=== PATIENT | female | born 1980 | race American Indian/Alaskan Native ===

== ENCOUNTER 2018-01-19 21:26 | Emergency (ER) | payer MEDICAID ==
[2018-01-19 21:41] VITALS: TEMP 98
--- NOTE | 2018-01-19 22:42 | ED PDOC ---
HPI: Abdomen Time Seen by Provider: 01/19/18 21:44 Chief Complaint (Nursing): Female Genitourinary Chief Complaint (Provider): Abdomain Pain with vaginal bleeding History Per: Patient History/Exam Limitations: no limitations Additional Complaint(s): 37 year old female presented to the ED complaining of abdominal pain with vaginal spotting. Patient is and is currently 11 weeks and is receiving care, has had prior US at 9 weeks, confirming an IUP. Patient reports she has had 2 high risk pregnancies. The first led to a delivery at 26 weeks. The second , cerclage was required and baby was delivered at 38 weeks. Denies fever, urinary symptoms and vomiting , has no other complaints. PCP: Long Navarrete Past Medical History Reviewed: Historical Data, Nursing Documentation, Vital Signs Vital Signs: Last Vital Signs Temp 98.0 F 01/20/18 01:35 Pulse 76 01/20/18 01:35 Resp 14 01/20/18 01:35 BP 112/67 01/20/18 01:35 Pulse Ox 100 01/20/18 02:54 - Medical History PMH: No Chronic Diseases - Family History Family History: States: Unknown Family Hx - Home Medications Home Medications: Ambulatory Orders Medication Instructions Recorded Nitrofurantoin Macrocrystals 100 mg PO BID #14 cap 01/20/18 [Macrobid] - Allergies Allergies/Adverse Reactions: Allergies Allergy/AdvReac Type Severity Reaction Status Date / Time shellfish derived Allergy SWELLING Verified 01/19/18 21:36 Review of Systems ROS Statement: Except As Marked, All Systems Reviewed And Found Negative Constitutional: Negative for: Fever Gastrointestinal: Positive for: Abdominal Pain. Negative for: Vomiting Genitourinary Female: Positive for: Vaginal Bleeding Physical Exam - Reviewed Nursing Documentation Reviewed: Yes Vital Signs Reviewed: Yes - Physical Exam Comments: GENERAL APPEARANCE: Patient is awake, alert, oriented x 3, no distress. SKIN: Warm, dry; (-) cyanosis. EYES: (-) conjunctival pallor, (-) scleral icterus. ENMT: Mucous membranes moist. NECK: (-) tenderness, (-) stiffness, (-) lymphadenopathy. CHEST AND RESPIRATORY: (-) rales, (-) rhonchi, (-) wheezes; breath sounds equal bilaterally. HEART AND CARDIOVASCULAR: (-) irregularity; (-) murmur, (-) gallop. ABDOMEN AND GI: (-) distention. Bowel sounds active; (-) tenderness, (-) guarding, (-) rebound, (-) palpable masses, (-) CVA tenderness. EXTREMITIES: (-) deformity, (-) edema, (+) distal pulses. NEURO AND PSYCH: Mental status as above; (-) focal findings. - Laboratory Results Result Diagrams: 01/19/18 22:35 01/19/18 22:35 - ECG O2 Sat by Pulse Oximetry: 100 (RA) Pulse Ox Interpretation: Normal Medical Decision Making Medical Decision Making: Initial Impression: threatened Initial Plan: - labs - ua - US TV Time: 0100 TRANSVAGINAL US RESULTS FINDINGS: Oropharynx: Normal. No significant tonsillar enlargement. Hypopharynx: Normal. Larynx: Normal. Normal epiglottis. Trachea: Normal. Retropharyngeal space: Normal. Submandibular/parotid glands: Normal. Glands are normal in size. Thyroid: Normal. No enlarged or calcified nodules. Bones/joints: No acute fracture. Soft tissues: Normal. Vasculature: No acute findings. Lymph nodes: Normal. No lymphadenopathy. Lung apices: Unremarkable as visualized. IMPRESSION: Normal neck CT. Dictated and Authenticated by: Gaston Addison MD 01/20/2018 1:00 AM Eastern Time ([place] & [place]) Labs reviewed : patient is B+, beta quant [id number], K 3.1, UA +trace leuks, urine cx sent. Patient medicated with KCL PO, macrobid PO. On re-evaluation, patient reports improvement of symptoms, denies any pain or increase in vaginal spotting or bleeding at this time. On exam, patient remains AAOx3, in no acute distress. Diagnostic results d/w the patient in great detail. Diagnosis of UTI, first trimester bleeding d/w the patient. Based on history, exam and diagnostic results, plan will be for outpatient follow up. Patient instructed to follow-up with OB in 1-2 days without fail. Advised to take medication as prescribed. Return to the emergency room at any time for any new or worsening symptoms. Patient states she fully agrees with and understands discharge instructions. States that she agrees with the plan and disposition. Verbalized and repeated discharge instructions and plan. I have given the patient opportunity to ask any additional questions. Scribe Attestation: Documented by Andi Aguilera, acting as a scribe for Nohemi Rai PA-C. Provider Scribe Attestation: All medical record entries made by the Scribe were at my direction and personally dictated by me. I have reviewed the chart and agree that the record accurately reflects my personal performance of the history, physical exam, medical decision making, and the department course for this patient. I have also personally directed, reviewed, and agree with the discharge instructions and disposition. Disposition - Clinical Impression Clinical Impression: Urinary tract infection, First trimester bleeding - Patient ED Disposition Is Patient to be Admitted: No Counseled Patient/Family Regarding: Studies Performed, Diagnosis, Need For Followup, Rx Given - Disposition Disposition: Routine/Home Disposition Time: 01:00 Condition: STABLE Additional Instructions: Thank you for letting us take care of you today. You were treated for UTI, first trimester bleeding. The emergency medical care you received today was directed at your acute symptoms. If you were prescribed any medication, please fill it and take as directed. It may take several days for your symptoms to resolve. Return to the Emergency Department if your symptoms worsen, do not improve, or if you have any other problems. Please contact your OB doctor in 2 days for re-evaluation and follow up. Bring any paperwork you were given at discharge with you along with any medications you are taking to your follow up visit. Our treatment cannot replace ongoing medical care by a primary care provider (PCP) outside of the emergency department. Thank you for allowing the [facility] team to be part of your care today. If you had a urine culture test done : We will call you regarding any positive results Prescriptions: Nitrofurantoin Macrocrystals [Macrobid] 100 mg PO BID #14 cap Instructions: Urinary Tract Infections in Adults, Bleeding With Forms: [employer] (German)
[2018-01-19 22:50] LABS: BASO # 0.1 K/uL (0.0-0.2); BASO % 0.7 % (0.0-2.0); EOS # 0.3 K/uL (0.0-0.7); EOS % 2.8 % (0.0-4.0); HEMOGLOBIN 13.1 g/dL (12.0-16.0); LYMPH % 29.2 % (20.0-40.0); MEAN CELL VOLUME 96.1 fl (81.0-99.0); MEAN CORPUSCULAR HEMOGLOBIN 33.8 pg (27.0-31.0); MEAN CORPUSCULAR HGB CONC 35.2 g/dL (33.0-37.0); MONO # 0.8 K/uL (0.0-0.8); MONO % 7.9 % (0.0-10.0); NEUT # 6.2 K/uL (1.8-7.0); NEUT % 59.4 % (50.0-75.0); NRBC % 0.2 % (0.0-0.0); RBC 3.87 Mil/uL (3.80-5.20); RED CELL DISTRIBUTION WIDTH 12.9 % (11.5-14.5); WHITE BLOOD COUNT 10.4 K/uL (4.8-10.8)
[2018-01-19 22:58] LABS: SQUAMOUS EPITHIAL 4 /hpf (0-5); URINE BACTERIA RARE (<OCC); URINE BILIRUBIN NEGATIVE (NEGATIVE); URINE BLOOD MODERATE (NEGATIVE); URINE CLARITY CLOUDY (Clear); URINE COLOR YELLOW (YELLOW); URINE GLUCOSE (UA) NEG (Normal); URINE LEUKOCYTE ESTERASE TRACE Leu/uL (Negative); URINE PROTEIN 30 mg/dL (NEGATIVE); URINE UROBILINOGEN 0.2-1.0 mg/dL (0.2-1.0)
[2018-01-19 23:01] LABS: BLOOD UREA NITROGEN 7 mg/dl (7-17); CALCIUM 9.7 mg/dL (8.4-10.2); GFR AFRICAN-AMERICAN > 60; GFR NON-AFRICAN AMERICAN > 60
[2018-01-20] MEDS ORDERED: Potassium Chloride 20 mEq/15 ml LIQ UD PO ONE (01:07)
[2018-01-20] MEDS ORDERED: Potassium Chloride 20 mEq ER Tab PO ONE (01:14)
[2018-01-20 01:36] VITALS: BP 112/67; PULSE 76; RESP 14
[2018-01-20 02:52] VITALS: O2SAT 100
--- NOTE | 2018-01-20 15:40 | US ---
HISTORY: 11 wks preg, vag bleeding COMPARISON: None available. TECHNIQUE: Transvaginal pelvic ultrasound was performed with longitudinal and transverse images submitted for interpretation. FINDINGS: UTERUS: Measures 14.9 x 11.6 x 9.3 cm. The uterus is anteverted, enlarged in size due to intrauterine gestation. No fibroid or other mass lesion seen. Intrauterine gestation is identified within the endometrial cavity with mean sac diameter of 5.13 cm corresponding to 11 weeks 0 days gestational age. Mean crown-rump length measurement measures 4.8 cm correspond to 11 weeks 5 days. The decidual reaction appears unremarkable with no so she did hemorrhage. Based on CRL mean, estimated delayed of delivery 08/08/2018. cardiac activity 164.11 beats per minute. ENDOMETRIUM: Intrauterine gestation. CERVIX: Cervix measures 5.3 cm with a closed internal os at a solitary anterior inferior nabothian cysts. RIGHT OVARY: Measures 4.8 x 3.5 x 2.2 cm. No solid mass. Normal flow. LEFT OVARY: Measures 3.8 x 4.6 x 1.8 cm. No solid mass. Normal flow. FREE FLUID: No significant free fluid noted. OTHER FINDINGS: None. IMPRESSION: A single viable intrauterine gestation is identified within the endometrial cavity with average ultrasonic age of 11 weeks 5 days and cardiac activity of 164.11 beats per minute. No related decidual hemorrhage appreciated.
== END 2018-01-20 01:36 | disposition home or self-care (01) ==
LOC: H.ER 21:26
DX: O23.41 Unspecified infection of urinary tract in pregnancy, first trimester (principal); Z3A.11 11 weeks gestation of pregnancy; O20.9 Hemorrhage in early pregnancy, unspecified

== ENCOUNTER 2018-07-12 08:55 | Emergency (ER) | payer BC, MEDICAID ==
[2018-07-12 19:44] VITALS: BP 113/56; PULSE 88; TEMP 98.2; O2SAT 100
--- NOTE | 2018-08-06 18:06 | OP ---
PROCEDURE DATE: 07/12/2018 She is at 36 weeks' with cerclage. DESCRIPTION OF PROCEDURE: With the patient in the dorsal lithotomy position, no anesthesia was given, the patient was prepped and draped in the usual sterile manner. The speculum placed in the vagina. Her cervix was cleaned with Betadine. After which, the knots from the cerclage were identified and were grasped. A long scissors was used to clip the knots of the cerclage and removed from. There were two knots placed. The procedure was done without any complication and there was no bleeding. The patient tolerated the procedure well and was in satisfactory condition after the procedure was done. Long Machado MD procedure removal of cerclage [place]
== END 2018-07-12 14:20 | disposition home or self-care (01) ==
LOC: H.EROB2 08:55 → MERGE 08:55 → H.EROB2 14:20
DX: O26.873 Cervical shortening, third trimester (principal); Z3A.36 36 weeks gestation of pregnancy

== ENCOUNTER 2018-07-24 14:27 | Inpatient (IN) | payer BC, MEDICAID ==
[2018-07-24 15:15] VITALS: BMI 34.2
[2018-07-24] MEDS ORDERED: Oxytocin 30 UNIT 30 UNITS/500 ML BAG IV ONE (15:21)
[2018-07-24] MEDS ORDERED: OXYTOCIN/0.9 % NS 20 UNIT/1,000 ML BAG IV SCH (15:30)
[2018-07-24] MEDS: Lactated Ringer's 1,000 ML IV SCH ×2 (15:30→16:00)
[2018-07-24 15:41] LABS: BASO # 0.1 K/uL (0.0-0.2); BASO % 0.7 % (0.0-2.0); EOS # 0.1 K/uL (0.0-0.7); EOS % 1.4 % (0.0-4.0); HEMOGLOBIN 11.5 g/dL (12.0-16.0); LYMPH # 3.1 K/uL (1.0-4.3); LYMPH % 31.2 % (20.0-40.0); MEAN CELL VOLUME 96.7 fl (81.0-99.0); MEAN CORPUSCULAR HEMOGLOBIN 31.6 pg (27.0-31.0); MEAN CORPUSCULAR HGB CONC 32.6 g/dL (33.0-37.0); MEAN PLATELET VOLUME 8.2 fl (7.2-11.7); MONO # 1.2 K/uL (0.0-0.8); MONO % 11.6 % (0.0-10.0); NEUT # 5.5 K/uL (1.8-7.0); NEUT % 55.1 % (50.0-75.0); NRBC % 0.2 % (0.0-0.0); RBC 3.65 Mil/uL (3.80-5.20); RED CELL DISTRIBUTION WIDTH 13.4 % (11.5-14.5); WHITE BLOOD COUNT 9.9 K/uL (4.8-10.8)
--- NOTE | 2018-07-24 15:45 | OBHP ---
Datetime: 07/24/2018 15:18 IP Adm Impression: Term, intrauterine IP Admit Plan: Admit to unit; Initiate labor protocol Admit Comment, IP Provider: 38 yo at 38+5 wks w/ EDC 08/02/2018 by 19+ u/s c/o painful ctxns that started at 10 am, denies LOF, reports vaginal spotting earlier and reports FM earlier today. P t received her prenaltal care w/ [facility] w/ Dr. Machado. 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 Pt admitted to L_ D. Pt desires an epidural. GBS negative. FHT reassuring. Extremities - PN: Normal Abdomen - PN: Normal Heart - PN: Normal Neurologic - PN: Normal General - PN: Normal FHR - Baseline A Provider: 130's Membranes, Provider: Intact EGA AdmitDate IP: 38.5 Vital Signs Provider: Reviewed IP Chief Complaint: Uterine contractions NICHD Variability Prov Fetus A: Moderate 6-25bpm Dilatation, Provider: 5-6 Effacement, Provider: 100 Station, Provider: -2 Genitourinary Exam: Normal
[2018-07-24] MEDS ORDERED: Fentanyl/Bupivacaine HCl 250 ML EPI ONE (15:48)
--- NOTE | 2018-07-24 15:50 | OBHP ---
Datetime: 07/24/2018 15:46 IP Adm Impression: Term, intrauterine IP Admit Plan: Admit to unit; Initiate labor protocol Admit Comment, IP Provider: 38 yo at 38+5 wks w/ EDC 08/02/2018 by 19+ u/s c/o painful ctxns that started at 10 am, denies LOF, reports vaginal spotting earlier and reports FM earlier today. P t received her prenaltal care w/ [facility] w/ Dr. Machado. 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 Pt denies STDs, reports abn pap in 2015, had colpo done All: shellfish-> throat closes, face swelling Fam hx: Father HTN Soc hx: Pt denies tobacco, alcohol, and illicit drug use PN labs: 01/17/2018 Urine cx mult org., B+, Ab neg 01/29/2018 Panorama low risk, female 02/26/2018 HBsAg neg, Rubella Immune, VZV IGG +, HIV neg, Chlamydia/ Gonorrhea neg, HSV 1 neg, HSV 2 +, MSAFP neg, pap neg, HPV neg, Hgb elect nl 04/22/2018 1 hr glucola 136 04/22/2018 3 hr GTT neg 07/02/2018 GBS neg PE: AFVSS Gen'l: pt appears to be in pain Heart: RRR Chest: Lunfs CTA b/l Abdomen: soft, NT, gravid Ext : NT VE: 5-6 cm/ 100/-2 at 1510 FHT as above [place]: difficult to discern A/P: 38 yo at 38+5 wks s/p cerclage removed on 07/12/2018 now in labor. Pt admitted to L_ D. Pt desires an epidural. GBS negative. FHT reassuring. Extremities - PN: Normal Abdomen - PN: Normal Back - PN: Normal Lungs - PN: Normal Heart - PN: Normal Neurologic - PN: Normal General - PN: Normal FHR - Baseline A Provider: 130's Membranes, Provider: Intact EGA AdmitDate IP: 38.5 Vital Signs Provider: Reviewed IP Indication for Induction: Not Applicable IP Chief Complaint: Uterine contractions NICHD Variability Prov Fetus A: Moderate 6-25bpm NICHD Accel Fetus A IP Provider: [id number] FHR Category Provider Fetus A: Category I Dilatation, Provider: 5-6 Effacement, Provider: 100 Station, Provider: -2 Genitourinary Exam: Normal
[2018-07-24 16:17] VITALS: RESP 20; TEMP 98.4
[2018-07-24 17:19] VITALS: PULSE 68
[2018-07-24] MEDS ORDERED: Oxycodone/Acetaminophen 5/325 mg Tab PO PRN ×2 (17:27→17:29)
[2018-07-24] MEDS ORDERED: Benzocaine/Menthol SPRAY TOP PRN ×2 (17:27→17:29)
--- NOTE | 2018-07-24 17:27 | OBDS ---
MATERNAL INFORMATION Estimated Blood Loss (ml): 200 Other Maternal Complications: meconium stained amniotic fluid Provider Comments: Delivered a living baby girl appears term AGA, cried spontaneously Peds in attend ence, 9/9; AF thick meconium stained; Placenta delivered complete and intact No vaginal or cerv ical tears noted perineum intact Uterus contracted well No complications LABOR SUMMARY EDC: 08/02/2018 00:00 LABOR INFORMATION Reason for Induction: Not Applicable Group B Beta Strep: Negative Steroids Given: None Reason Steroids Not Administered: Not Applicable VAGINAL DELIVERY Episiotomy: None Laceration Extension: N/A Laceration Type: None Laceration Repair: Not Applicable Laceration Repair Note: n/a Sponge Count Correct: Yes Sharps Count Correct: N/A Count Comment: count correct CSECTION DELIVERY Primary Indication: N/A Secondary Indication: N/A CSection Incision: N/A Uterine Closure: N/A BABY A INFORMATION Forceps: N/A Vacuum Extraction: N/A PRESENTATION/POSITION BABY A Presentation: Cephalic Cephalic Presentation: Vertex Vertex Position: Left Occipital Anterior Breech Presentation: N/A PLACENTA INFORMATION BABY A Placenta Method of Delivery: Spontaneous Placenta Status: Delivered
[2018-07-24] MEDS: Benzocaine/Menthol SPRAY TOP PRN (20:09)
[2018-07-24] MEDS: Oxycodone/Acetaminophen 5/325 mg Tab PO PRN (21:43)
[2018-07-25] MEDS: Oxycodone/Acetaminophen 5/325 mg Tab PO PRN ×3 (01:57→14:39)
[2018-07-25 06:02] LABS: BASO % 0.2 % (0.0-2.0); EOS # 0.1 K/uL (0.0-0.7); EOS % 0.6 % (0.0-4.0); HEMOGLOBIN 9.9 g/dL (12.0-16.0); LYMPH # 2.7 K/uL (1.0-4.3); LYMPH % 19.1 % (20.0-40.0); MEAN CELL VOLUME 95.1 fl (81.0-99.0); MEAN CORPUSCULAR HEMOGLOBIN 30.7 pg (27.0-31.0); MEAN CORPUSCULAR HGB CONC 32.2 g/dL (33.0-37.0); MEAN PLATELET VOLUME 8.1 fl (7.2-11.7); MONO # 1.1 K/uL (0.0-0.8); MONO % 7.6 % (0.0-10.0); NEUT # 10.3 K/uL (1.8-7.0); NEUT % 72.5 % (50.0-75.0); NRBC % 0.1 % (0.0-0.0); RBC 3.21 Mil/uL (3.80-5.20); RED CELL DISTRIBUTION WIDTH 13.3 % (11.5-14.5); WHITE BLOOD COUNT 14.2 K/uL (4.8-10.8)
--- NOTE | 2018-07-25 07:42 | OBPPN ---
Datetime: 07/25/2018 07:37 PP Pain Prov: Within normal limits PP Pain Prov comment: Denies SOB, chest or leg pains PP Nausea Prov: Denies PP Flatus Prov: Yes PP Breasts Prov: Normal PP Lungs Prov: Normal PP Abdomen/Uterus Prov: Abnormal PP Lochia Prov: Normal PP Vulva/Perineum Prov: Normal PP CVA Tenderness Prov: Normal PP Extremities Prov: Normal PP C/S Incision Prov: Not Applicable PP Progress Prov: Normal PP Comments Phys Exam Prov: breast not engorged NT, breast feeding; Abd soft ND, depressible fundus firm below the umb NT; Ext no leg edema or calf tenderness. PP Impression Prov: Normal progression PP Plan Prov: Continue present management PP Progress Note Prov: OOB and ambulatin, start on po iron Continue PP care IP PP Procedures: None Vital Signs Provider PP: Reviewed
[2018-07-26] MEDS: Oxycodone/Acetaminophen 5/325 mg Tab PO PRN (08:58)
[2018-07-26] MEDS: Benzocaine/Menthol SPRAY TOP PRN (12:07)
--- NOTE | 2018-07-26 13:47 | OBDCSUM ---
Datetime: 07/26/2018 13:03 Discharged to, Provider: Home Follow up at, Provider: Dr. Rizvi Disch Instr Activity: Normal activity; May be up to bathroom; May be up for meals; May Shower Disch Instr Diet: Regular Discharge Instructions, Provider: Routine instructions given Discharge Diagnosis, Provider: Term Delivered Follow up in weeks, Provider: 4-6 weeks Disch Activity Restrictions: No exercising; No lifting; No driving; Minimize walking; Minimize stair -climbing; No sexual activity; Nothing in vagina - [place], tampons, douche Contraception after Delivery: Undecided
[2018-07-26 21:52] VITALS: BP 110/61; O2SAT 98
== END 2018-07-26 14:50 | disposition home or self-care (01) | DRG 807 ==
LOC: H.EROB2 14:27 → H.L&D 15:15 → H.OB/GYN 19:18
PROVIDERS: ADMIT Specialist; ATTEND Specialist
PROC: 10E0XZZ Delivery of Products of Conception, External Approach (ICD-10-PCS; principal; 2018-07-24)
PROC: 4A1HXCZ Monitoring of Products of Conception, Cardiac Rate, External Approach (ICD-10-PCS; 2018-07-24)
DX: O62.3 Precipitate labor (principal); Z37.0 Single live birth; Z3A.38 38 weeks gestation of pregnancy; O77.0 Labor and delivery complicated by meconium in amniotic fluid